=== PATIENT | female | born 1985 | race Caucasian/White ===

== ENCOUNTER 2018-05-14 13:20 | Emergency (ER) | payer SELFPAY ==
[~2018-05-14] VITALS: Ht 170.2 cm; Wt 72.6 kg
[2018-05-14] MEDS ORDERED: SULFAMETH/TRIMETH 800/160 MG TABLET PO ONE (13:45)
[2018-05-14] MEDS ORDERED: SULFAMETH/TRIMETH 800/160 MG TABLET ONE (13:51)
--- NOTE | 2018-05-14 13:54 | NUR ---
Patient discharged to home in stable conditon. Written and verbal after care instructions given. Patient verbalizes understanding of instructions.
[2018-05-14 14:02] LABS: *BLOOD, URINE 3+ (NEGATIVE); *CLARITY,URINE CLOUDY (CLEAR); *COLOR,URINE Orange (YELLOW); *KETONES,URINE TRACE (NEGATIVE); LEUKOCYTE ESTERASE ,URINE 3+ (NEGATIVE); NITRITE, URINE POSITIVE (NEGATIVE); PH,URINE >=9.0 (5.0-8.0); UGLUCOSE TRACE (NEGATIVE)
[2018-05-14 14:04] LABS: *BILIRUBIN,URIN 1+ (NEGATIVE)
[2018-05-14 14:07] LABS: *URINE HCG, QUAL NEGATIVE (NEGATIVE)
[2018-05-14 14:14] LABS: RBC,URINE 50-80 /HPF (0-3); WBC,URINE TNTC /HPF (0-3)
[2018-05-14 14:15] LABS: BACTERIA,URINE MOD /HPF (NONE SEEN); SQUAMOUS EPITHELIAL CELL,UR FEW /HPF (NONE SEEN)
== END 2018-05-14 13:57 | disposition home or self-care (01) ==
LOC: ER 13:20
DX: N39.0 Urinary tract infection, site not specified (principal); L01.00 Impetigo, unspecified; B95.61 Methicillin susceptible Staphylococcus aureus infection as the cause of diseases classified elsewhere
CPT/HCPCS: 84703; A4663

== ENCOUNTER 2020-03-30 23:15 | Emergency (ER) | payer OTHER ==
[~2020-03-30] VITALS: Ht 170.2 cm; Wt 59.0 kg
[2020-03-30] MEDS ORDERED: IV NORMAL SALINE 1000 ML BAG IV ONE (23:45)
[2020-03-30] MEDS ORDERED: HYDROMORPHONE 1 MG/1 ML DISP.SYRIN IV ONE (23:45)
[2020-03-30] MEDS ORDERED: ONDANSETRON 4 MG/2 ML VIAL IV ONE (23:45)
[2020-03-31] MEDS ORDERED: ONDANSETRON 4 MG/2 ML VIAL ONE (00:09)
[2020-03-31] MEDS ORDERED: HYDROMORPHONE 1 MG/1 ML DISP.SYRIN ONE (00:09)
[2020-03-31 00:20] LABS: BASOPHILS % (AUTO) 0.2 % (0.0-2.0); EOSINOPHILS # (AUTO) 0.1 K/uL (0.0-0.7); EOSINOPHILS % (AUTO) 1.5 % (0.0-7.0); HEMATOCRIT 34.8 % (31.2-41.9); HEMOGLOBIN 11.2 g/dL (10.9-14.3); LYMPHOCYTES # (AUTO) 1.1 K/uL (20.0-40.0); LYMPHOCYTES % (AUTO) 16.4 % (20.5-51.5); MEAN CORPUSCULAR HEMOGLOBIN 23.6 uug (24.7-32.8); MEAN CORPUSCULAR HGB CONC 32 g/dL (32.3-35.6); MEAN CORPUSCULAR VOLUME 73.1 fL (75.5-95.3); MONOCYTES # (AUTO) 0.8 K/uL (2.0-10.0); MONOCYTES % (AUTO) 12.9 % (0.0-11.0); NEUTROPHILS # (AUTO) 4.5 K/uL (1.8-8.9); PLATELET COUNT (AUTO) 175 K/uL (179-408); RED BLOOD CELL COUNT(AUTO) 4.75 MIL/uL (3.63-4.92); WHITE BLOOD COUNT (AUTO) 6.5 K/uL (3.8-11.8)
[2020-03-31 00:21] LABS: *BILIRUBIN,URIN 1+ (NEGATIVE); *BLOOD, URINE NEGATIVE (NEGATIVE); *CLARITY,URINE SLIGHTLY CLOUDY (CLEAR); *COLOR,URINE AMBER (YELLOW); *KETONES,URINE NEGATIVE (NEGATIVE); *UROBILINOGEN,URINE 0.2 E.U./dl (NORMAL); LEUKOCYTE ESTERASE ,URINE NEGATIVE (NEGATIVE); NITRITE, URINE NEGATIVE (NEGATIVE); PH,URINE 5.5 (5.0-8.0); UGLUCOSE NEGATIVE (NEGATIVE)
[2020-03-31 00:35] LABS: CARBON DIOXIDE 26 mmol/L (21-32); CHLORIDE 100 mmol/L (98-107); CREATININE 0.6 mg/dL (0.6-1.3); GLUCOSE 96 mg/dL (74-106); POTASSIUM 3.3 mmol/L (3.5-5.1); UREA NITROGEN, BLOOD 23 mg/dL (7-18)
[2020-03-31 00:37] LABS: *URINE HCG, QUAL NEGATIVE (NEGATIVE)
[2020-03-31 00:41] LABS: ALANINE AMINOTRANSFERASE 18 U/L (14-59); ALKALINE PHOSPHATASE 62 U/L (50-136); ASPARTATE AMINOTRANSFERASE 16 U/L (15-37); BILIRUBIN,DIRECT 0.1 mg/dL (0.0-0.2); BILIRUBIN,TOTAL 0.3 mg/dL (0.2-1.0); LIPASE 93 U/L (73-393); TOTAL PROTEIN, SERUM 7.7 g/dL (6.4-8.2)
[2020-03-31 00:42] LABS: BACTERIA,URINE MODERATE /HPF (NONE SEEN); MUCUS,URINE MANY /LPF (0-FEW); RBC,URINE 0-3 /HPF (0-3); SQUAMOUS EPITHELIAL CELL,UR MANY /HPF (NONE SEEN); WBC,URINE 0-3 /HPF (0-3)
--- NOTE | 2020-03-31 03:08 | NUR ---
IV removed. Catheter intact and site benign. Pressure and 4x4 gauze applied to site. No bleeding noted.
--- NOTE | 2020-03-31 03:10 | NUR ---
Patient discharged to home in stable condition. Written and verbal after care instructions given. Patient verbalizes understanding of instructions. Stressed follow up or return to ER for worsening s/s. Patient's roommate driving her home.
[2020-03-31 03:11] VITALS: BP 122/82
== END 2020-03-31 03:29 | disposition home or self-care (01) ==
LOC: ER 23:19
DX: A04.72 Enterocolitis due to Clostridium difficile, not specified as recurrent (principal)
CPT/HCPCS: 36415; 74176; 80048; 80076; 81001; 83690; 84702; 84703; 85025; 85730; 87086; 96361; 96374; 96375; 99284; J1170; J2405; J7030